=== PATIENT | male | born 1945 | race Caucasian/White ===

== ENCOUNTER 2017-11-15 07:35 | Day surgery (SDC) | payer OTHER ==
[~2017-11-15 07:35] MED LIST: LOTREL 5-10 MG1 CAP PO; NORVASC5 MG PO
== END 2017-11-15 13:00 | disposition home or self-care (01) ==
LOC: CIR.AMB 07:35
DX: M43.16 Spondylolisthesis, lumbar region (principal); M54.5 Low back pain